=== PATIENT | female | born 2000 | race Caucasian/White ===

== ENCOUNTER 2023-08-14 16:37 | Emergency (ER) | payer OTHER, SELFPAY ==
[2023-08-14] MEDS ORDERED: diphenhydrAMINE 50 MG/ML VIAL ONE (17:20)
[2023-08-14] MEDS ORDERED: Prochlorperazine 10 MG/2 ML VIAL ONE (17:20)
[2023-08-14 18:05] LABS: #Basophils 0.1 10x3/uL (0.0-0.2); #Eosinphils 0.2 10x3/uL (0.0-0.5); #Monocytes 0.5 10x3/uL (0.0-1.1); %Basophils 0.6 % (0.0-2.0); %Eosinophils 1.2 % (0.0-6.0); %Monocytes 3.9 % (0.0-10.0); %Neutrophils 81.9 % (40.0-75.0); Hematocrit 38.3 % (34.9-44.5); Hemoglobin 12.9 g/dL (12.0-15.5); Mean Corpuscular HGB CONC 33.7 g/dL (32.0-36.0); Mean Corpuscular Hemoglobin 30.1 pg (27.0-33.0); Mean Corpuscular Volume 89.5 fl (81.6-98.3); Mean Platelet Volume 11.2 fl (7.4-10.4); Platelet Count 249 10x3/uL (150-450); RBC Distribution Width 13.7 % (11.5-14.5); Red Blood Cell (RBC) Count 4.28 10x6/uL (3.90-5.03); White Blood Cell (WBC) Count 12.2 10x3/uL (3.5-10.5)
[2023-08-14 18:13] LABS: ALT (SGPT) Less than 7 U/L (8-55); AST (SGOT) 12 U/L (5-34); Albumin 3.7 g/dL (3.5-5.0); Alkaline Phosphatase 56 U/L (40-110); Anion Gap 14 mmol/L (10-20); BUN (Urea Nitrogen) 5 mg/dL (7.0-18.7); Bilirubin, Total 0.3 mg/dL (0.2-1.2); Calc. Creatinine Clearance 0 mL/min (70-130); Calcium 8.7 mg/dL (7.8-10.44); Carbon Dioxide 21 mmol/L (22-29); Chloride 104 mmol/L (98-107); Estimated GFR 128; Globulin 3.2 g/dL (2.4-3.5); Glucose 85 mg/dL (70-105); Lipase 7 U/L (8-78); Potassium 3.5 mmol/L (3.5-5.1); Protein, Total 6.9 g/dL (6.0-8.3); Sodium 135 mmol/L (136-145)
[2023-08-14 18:36] LABS: Bilirubin Neg (Negative); Blood, Urine Negative (Negative); Clarity Clear (Clear); Glucose, Urine (Dipstick) Normal (Negative); Ketone, Urine 15 mg/dL (Negative); Leukocyte 25 (Negative); Nitrite Negative (Negative); Protein, Urine (Dipstick) 15 mg/dl (Neg-Trace); Specific Gravity, Urine 1.015 (1.005-1.030); Urobilinogen Normal mg/dL (Less than 2); pH, Urine 6.5 (5.0-9.0)
[2023-08-14 18:39] LABS: SARS-CoV-2 NAA Rapid Test Not Detected (NotDetected)
[2023-08-14 18:45] LABS: Bacteria/HPF 3+ HPF (None Seen); CAUTI Indications for Culture Pregnancy; RBC/HPF None Seen HPF (0-3); WBC/HPF 0-3 HPF (0-3)
[2023-08-14 18:46] LABS: Mucous/LPF 2+ LPF (<2+); Urine Culture Reflex Yes Yes; Yeast-Hyphae 1+ HPF (None Seen)
== END 2023-08-14 19:29 | disposition home or self-care (01) ==
LOC: CSHERS 16:37
DX: O99.891 Other specified diseases and conditions complicating pregnancy (principal); R51.9 Headache, unspecified; Z3A.21 21 weeks gestation of pregnancy
CPT/HCPCS: 36415; 80053; 81001; 83690; 85025; 87086; 96374; 96375; J0780; J1200